=== PATIENT | male | born 1955 | race Caucasian/White ===

== ENCOUNTER 2022-01-11 18:12 | Emergency (ER) | payer BC ==
[~2022-01-11] VITALS: Ht 180.3 cm; Wt 74.8 kg
[2022-01-11] MEDS ORDERED: ISOSORBIDE MONO30 M2 PO (19:06)
[2022-01-11] MEDS ORDERED: ECOTRIN81 MG (19:06)
[2022-01-11] MEDS ORDERED: ATORVASTATIN CA20 MG PO (19:06)
== END 2022-01-11 21:08 | disposition left against medical advice (07) ==
LOC: ER 18:12
DX: S50.11XA Contusion of right forearm, initial encounter (principal); X58.XXXA Exposure to other specified factors, initial encounter; Y93.89 Activity, other specified; Y92.89 Other specified places as the place of occurrence of the external cause; Y99.9 Unspecified external cause status